=== PATIENT | female | born 1995 | race Two or more races ===

== ENCOUNTER 2019-09-17 10:16 | Day surgery (SDC) | payer OTHER ==
[~2019-09-17 10:16] MED LIST: AMPICILLIN SODIUM 2 GM in NORMAL SALINE 100 ML IV PRN; CARBOXYMETHYLCELLULOSE SOD 0.5% 0.4 ML DROPERETTE ONE; DEXAMETHASONE SOD PHOS INJ 10 MG/1 ML VIAL ONE; HYDROMORPHONE HCL INJ/PF 2 MG/ML AMPULE ONE; MIDAZOLAM 2 MG/2 ML INJ ONE; ONDANSETRON HCL INJ/PF 4 MG/2 ML SDV ONE; PROPOFOL INJ 200 MG/20 ML VIAL IV ONE; SUCCINYLCHOLINE CHLORIDE INJ 200 MG/10 ML VIAL ONE
[2019-09-17] MEDS ORDERED: OXYMETAZOLINE HCL 0.05% NASAL SPRAY 15 ML BOTTLE ONE (10:28)
--- NOTE | 2019-09-17 11:18 | Operative Report ---
[facility] Operative Report: Date: 17 September 2019 History: 24-year-old female with a history of recurrent tonsillitis/chronic tons illitis. Presents today for tonsillectomy. Informed consent was obtained from the patient. Pre-operative diagnosis: 1. Chronic Tonsillitis Post operative diagnosis: Same as above Procedure: Tonsillectomy Surgeon: Emmanuel Anderson MD, FACS, [facility] Anesthesia: General via Endotrachreal intubation Procedure: After receiving informed consent, the patient was brought to the operating room and placed supine on the operating table. After successful induction and intubation by anesthesia the patient was turned 90 degrees and placed in Trendelenburg. A shoulder roll was placed along with a head drape. A McIvor mouth gag was inserted atraumatically into the oral cavity and opened up. The soft palate was palpated and found to be normal. Red rubber catheters were inserted down each nasal cavity and brought out to elevate the soft palate. Attention was then directed to the tonsils. The right tonsil was grasped with tenaculum and retracted medially. Using Bovie electrocautery the right tonsil was dissected free from its tonsillar fossa . Hemostasis was obtained using suction Bovie electrocautery. A similar procedure was performed on the left side. Both tonsils were removed. The tonsils were 3-4+. The oral pharynx and the oral cavity were irrigated with copious amounts of normal saline, without evidence of bleeding. An orogastric tube was inserted into the stomach to aspirate gastric contents. The McIvor mouthgag was then released and reopened, the surgical bed was dry without evidence of bleeding. The McIvor mouth gag along with the red catheters were removed from the patient. The patient was then returned back to anesthesia who successfully extubated the patient. Estimated blood loss: 5 mL Fluids: 300 mL The patient was then transported to the Post Anesthesia Care Unit in stable condition with spontaneous respiration. No complication.
[2019-09-17] MEDS ORDERED: ONDANSETRON HCL INJ/PF 4 MG/2 ML SDV ONE (12:09)
[2019-09-17] MEDS ORDERED: HYDROCOD/ACETAMIN 7.5-325 MG/15 ML ORAL SOLN UDCUP ONE (12:10)
== END 2019-09-17 12:50 | disposition home or self-care (01) ==
LOC: SC 10:16
PROVIDERS: ATTEND Otolaryngology
DX: J03.91 Acute recurrent tonsillitis, unspecified (principal); J35.01 Chronic tonsillitis; J35.8 Other chronic diseases of tonsils and adenoids; J34.2 Deviated nasal septum; Z03.818 Encounter for observation for suspected exposure to other biological agents ruled out
CPT/HCPCS: 87635; 42826; J0290; J2250; J1170; J3490 ×2; J0330; J2405; J7050; J2704; J1100; C9803; 88304

== ENCOUNTER 2019-09-27 03:47 | Day surgery (SDC) | payer OTHER ==
[2019-09-27] MEDS ORDERED: TRANEXAMIC ACID INJ/PF 1,000 MG/10 ML SDV IV ONE (04:24)
[2019-09-27 04:27] LABS: ABSOLUTE BASOPHILS # (AUTO) 0.1 10^3/uL (0.0-0.2); ABSOLUTE EOSINOPHILS # (AUTO) 0.1 10^3/uL (0.0-0.6); ABSOLUTE LYMPHOCYTES (AUTO) 3.9 10^3/uL (0.5-4.7); ABSOLUTE MONOCYTES (AUTO) 0.7 10^3/uL (0.1-1.4); ABSOLUTE NEUT (AUTO) 5.7 10^3/uL (1.7-8.2); BASOPHILS % (AUTO) 0.5 % (0-2); EOSINOPHILS % (AUTO) 0.9 % (0-6); HEMATOCRIT 46.8 % (36.0-47.0); HEMOGLOBIN 16.1 g/dL (12.0-15.5); MEAN CORPUSCULAR HEMOGLOBIN 30.3 pg (27.0-33.4); MEAN CORPUSCULAR HGB CONC 34.4 g/dL (32.0-36.0); MEAN CORPUSCULAR VOLUME 88 fl (80-97); PLATELET COUNT 311 10^3/uL (150-450); RED CELL DISTRIBUTION WIDTH 12.8 % (11.5-14.0); SEGMENTED NEUTROPHILS % (AUTO) 54.6 % (42-78); TOTAL CELLS COUNTED % (AUTO) 100 %; WHITE BLOOD COUNT 10.4 10^3/uL (4.0-10.5)
[2019-09-27 04:32] LABS: INTERNATIONAL RATION (INR) 1.12; PARTIAL THROMBOPLASTIN TIME 29.3 SEC (23.5-35.8); PROTHROMBIN TIME 14.6 SEC (11.4-15.4)
[2019-09-27 04:42] LABS: ALBUMIN 4.9 g/dL (3.5-5.0); ALKALINE PHOSPHATASE 82 U/L (38-126); ANION GAP 16 (5-19); ASPARTATE AMINO TRANSFERASE 39 U/L (14-36); BILIRUBIN,TOTAL 0.7 mg/dL (0.2-1.3); BLOOD UREA NITROGEN 13 mg/dL (7-20); CALCIUM 10.1 mg/dL (8.4-10.2); CARBON DIOXIDE 18 mmol/L (22-30); CHLORIDE 104 mmol/L (98-107); GLUCOSE 128 mg/dL (75-110); TOTAL PROTEIN 8.7 g/dL (6.3-8.2)
[2019-09-27] MEDS ORDERED: DEXAMETHASONE SOD PHOSPHATE INJ 4 MG/1 ML VIAL ONE (05:10)
[2019-09-27] MEDS ORDERED: ONDANSETRON HCL INJ/PF 4 MG/2 ML SDV ONE (05:10)
[2019-09-27] MEDS ORDERED: FENTANYL CITRATE INJ/PF 100 MCG/2 ML AMPUL ONE ×3 (05:10→05:26)
[2019-09-27] MEDS ORDERED: MIDAZOLAM 2 MG/2 ML INJ ONE (05:10)
[2019-09-27] MEDS ORDERED: PROPOFOL INJ 200 MG/20 ML VIAL IV ONE (05:11)
--- NOTE | 2019-09-27 05:25 | ER Document Report ---
ED General - General Chief Complaint: Post Surgical Bleeding Stated Complaint: VOMITING BLOOD - HPI Notes: 24-year-old female history of tonsillectomy September 17, [address] Spencer presents with bleeding from surgical site. Patient has been healing well and is approximately 1 hour before arrival and started having bright red blood pouring out of her mouth that she said was several cups full of blood. Patient spitting up bright red blood and large clots in the ED. Patient denies any syncope, bleeding diatheses, anticoagulation, fever, discharge - Related Data Allergies/Adverse Reactions: PEANUT BUTTER Allergy (Severe, Uncoded 09/09/19 14:42) Hives Past Medical History - General Information source: Patient - Social History Smoking Status: Never Smoker Chew tobacco use (# tins/day): No Drug Abuse: None Family History: Reviewed & Not Pertinent - Past Medical History Cardiac Medical History: Denies: Hx Heart Attack, Hx Hypertension Pulmonary Medical History: Denies: Hx Asthma Neurological Medical History: Denies: Hx Cerebrovascular Accident, Hx Seizures GI Medical History: Denies: Hx Hepatitis, Hx Hiatal Hernia, Hx Ulcer Infectious Medical History: Denies: Hx Hepatitis Past Surgical History: Denies: Hx Hysterectomy, Hx Mastectomy, Hx Open Heart Surgery, Hx Pacemaker Review of Systems - Review of Systems Notes: REVIEW OF SYSTEMS: CONSTITUTIONAL : Denies fever, chills, or sweats. EENT: Denies recent cold/sinus symptoms, denies throat pain CARDIOVASCULAR: Denies chest pain, GINO RESPIRATORY: Denies cough, denies shortness of breath. GASTROINTESTINAL: Denies abdominal pain, nausea/vomiting. GENITOURINARY: Denies difficulty urinating, painful urination. FEMALE GENITOURINARY: Denies abnormal vaginal bleeding, vaginal discharge. MUSCULOSKELETAL: Denies neck pain, back pain. SKIN: Denies rash or skin lesions. HEMATOLOGIC : Denies easy bruising or bleeding. LYMPHATIC: Denies swollen, enlarged glands. NEUROLOGICAL: Denies headache, denies change in gait. PSYCHIATRIC: Denies anxiety or stress or depression. Physical Exam - Vital signs Vitals: Pulse Ox 98 09/27/19 03:54 - Notes Notes: PHYSICAL EXAMINATION: GENERAL: Uncomfortable appearing secondary to actively spitting up large amounts of bright red blood HEAD: Atraumatic, normocephalic. EYES: Pupils equal round and appropriate constriction, sclera anicteric, conjunctiva are normal. ENT: nares patent, moist mucous membranes, after clears mouth of bright red blood able to see bilateral newly forming red eschars in posterior fossae of bilateral oropharynx that are continuing to slowly ooze red blood NECK: Normal range of motion, supple without lymphadenopathy LUNGS: Breath sounds clear to auscultation bilaterally and equal. No wheezes rales or rhonchi. HEART: Borderline tachycardic, no murmurs rubs or gallops ABDOMEN: Soft, nontender, no guarding, no masses, no CVAT EXTREMITIES: Normal range of motion, no pitting or edema. No cyanosis. NEUROLOGICAL: Awake, alert, conversing appropriately, moves all extremities spontaneously. PSYCH: Normal mood, normal affect. SKIN: Warm, Dry, normal turgor, no rashes or lesions noted. Course - Re-evaluation Re-evalutation: 09/27/19 05:24 Patient likely bleeding from tonsillectomy eschars given approximately 10 days postop, bleeding has greatly slowed in ED although patient has few times intermittently has had resumption of bright red blood which she spits up. Patient protecting her airway, will continue to monitor closely. No abdominal symptoms. No signs of infection. Discussed with patient's ENT Dr. Anderson who will take patient to the OR to evaluate bleeding. Ordered TXA given amount of blood on arrival which may have contributed to current reduction in blood loss with only slow bleeding currently. - Vital Signs Vital signs: Temp Pulse Resp BP Pulse Ox 98.0 F 69 18 104/64 97 09/27/19 13:04 09/27/19 13:04 09/27/19 13:04 09/27/19 11:05 09/27/19 13:04 - Laboratory Result Diagrams: 09/27/19 04:12 09/27/19 04:12 Laboratory results interpreted by me: 09/27/19 09/27/19 04:12 04:12 RBC 5.30 H Hgb 16.1 H Carbon Dioxide 18 L Glucose 128 H AST 39 H ALT 55 H Total Protein 8.7 H Discharge - Discharge Clinical Impression: Hemorrhage following tonsillectomy Disposition: SAME DAY SURGERY Admitting Provider: Justin Unit Admitted: OR
[2019-09-27] MEDS ORDERED: LIDOCAINE 2%/EPINEPHRINE INJ 1.7 ML CARTRIDGE ONE (05:26)
[2019-09-27] MEDS ORDERED: BUPIVACAINE HCL 0.5%/EPI 1:200000 INJ 1.8 ML CARTRIDGE ONE (05:26)
[2019-09-27] MEDS ORDERED: OXYMETAZOLINE HCL 0.05% NASAL SPRAY 15 ML BOTTLE ONE (05:27)
[2019-09-27] MEDS ORDERED: ONDANSETRON HCL INJ/PF 4 MG/2 ML SDV IV PRN ×2 (05:57→07:13)
[2019-09-27] MEDS ORDERED: MEPERIDINE HCL/PF INJ 25 MG/1 ML DISP.SYRIN IV PRN (05:57)
[2019-09-27] MEDS ORDERED: PROMETHAZINE HCL INJ 25 MG/1 ML VIAL IV PRN ×2 (05:57)
[2019-09-27] MEDS ORDERED: MORPHINE SULFATE 10 MG/ML INJ IV PRN (05:57)
[2019-09-27] MEDS ORDERED: OXYCODONE-ACETAMINOPHEN 5-325 MG TABLET PO PRN ×2 (05:57)
[2019-09-27] MEDS ORDERED: FENTANYL CITRATE INJ/PF 100 MCG/2 ML AMPUL IV PRN ×3 (05:57)
[2019-09-27] MEDS ORDERED: DIPHENHYDRAMINE HCL 50 MG/ML VIAL IV PRN (05:57)
[2019-09-27] MEDS: FENTANYL CITRATE INJ/PF 100 MCG/2 ML AMPUL ONE ×3 (06:25→06:40)
--- NOTE | 2019-09-27 06:25 | Operative Report ---
[facility] Oper[facility] Report: Date: 27 September 2019 History: 24-year-old female who underwent a tonsillectomy on 17 September 2019 cough ed up blood at 0300 this morning. Patient presented to the emergency room where bleeding was noted coming from the oral cavity/oropharynx. After phone conversation with the emergency room doctor, it was decided that the patient needed to go to the operating room for control of post tonsillectomy hemorrhage. Informed consent was obtained from the patient. Pre-operative diagnosis: Post tonsillectomy bleed, left Post operative diagnosis: Same as above Procedure: Cauterize post tonsillectomy bleed, left tonsil fossa Surgeon: Emmanuel Anderson MD, FACS, [facility] Anesthesia: General via endotracheal intubation Procedure: After receiving informed consent from the patient she was taken to the operating placed supine on the operating room table. After successful induction intubation by anesthesia, the patient was turned 90 degrees and placed in slight Trendelenburg. A shoulder roll and head drape were placed. A MacGyver mouthgag was inserted atraumatically into the oral cavity this was then opened up. A large clot was noted in the left tonsillar fossa. The clot was removed and an arterial bleed was noted mid fossa. This was successfully cauterized using suction Bovie electrocautery. The oral cavity/oropharynx was then irrigated with normal saline. No further bleeding was noted. An orogastric tube was inserted into the stomach and gastric contents were aspirated. The McIvor mouthgag was then let down and reopened, no bleeding was noted. This was then removed from the patient. The patient was given back to anesthesia who successfully extubated the patient. No complications. Estimated blood loss: 10 mL Fluids: 600 mL The patient was then transported to the Post Anesthesia Care Unit in stable condition with spontaneous respiration. No complication.
[2019-09-27] MEDS ORDERED: RINGERS SOLUTION,LACTATED 1,000 ML IV PRN (07:11)
[2019-09-27] MEDS ORDERED: HYDROCOD/ACETAMIN 7.5-325 MG/15 ML ORAL SOLN UDCUP PO PRN ×2 (07:12→07:30)
[2019-09-27] MEDS ORDERED: ACETAMINOPHEN SUSP 160 MG/5 ML ORAL SYRING PO PRN (07:14)
[2019-09-27] MEDS ORDERED: SUCCINYLCHOLINE CHLORIDE INJ 200 MG/10 ML VIAL ONE (10:01)
[2019-09-27 11:43] VITALS: BP 104/64
== END 2019-09-27 13:20 | disposition home or self-care (01) ==
LOC: ER 03:47 → UNDOADMOB 05:28 → EH 05:28 → 2S 07:30 → EH 07:30 → 2S 07:30 → ASU 9 07:30 → UNDODISOB 13:20 → ASU 9 13:20
PROVIDERS: ATTEND Otolaryngology
DX: J95.831 Postprocedural hemorrhage of a respiratory system organ or structure following other procedure (principal); Y83.8 Other surgical procedures as the cause of abnormal reaction of the patient, or of later complication, without mention of misadventure at the time of the procedure
CPT/HCPCS: 99284; 96374; 86900; 86901; 36415; 86850; 83690; 84703; 85025; 85610; 85730; 80053; 99140; 00170; 42960; J2250; J1100; J3010; J3490 ×2; J0330; J2405; J2704; 170

== ENCOUNTER 2019-12-30 20:48 | Emergency (ER) | payer OTHER ==
[2019-12-30] MEDS ORDERED: METOCLOPRAMIDE HCL INJ/PF 10 MG/2 ML SDV IV ONE (21:03)
[2019-12-30] MEDS ORDERED: DIPHENHYDRAMINE HCL 50 MG/ML VIAL IV ONE (21:03)
[2019-12-30] MEDS ORDERED: NORMAL SALINE 1000 ML 1,000 ML IV ONE (21:03)
--- NOTE | 2019-12-30 21:05 | ER Document Report ---
ED Medical Screen (RME) - General Chief Complaint: Vomiting Stated Complaint: VOMITING/ Time Seen by Provider: 12/30/19 20:49 Primary Care Provider: DORON CHRISTIANSON PA-C [Primary Care Provider] - Follow up as needed - [facility] Notes: 12/30/19 21:04 24-year-old female to the emergency department with complaints of intractable nausea and vomiting for the past 2 days. She states she is not able to hold down any fluids or solids. She states she has had decreased urinary output. She states she is only urinated twice today. She called her nurse line and they told her to come to the emergency department for further care. She states that she is about 7 and half weeks . She has not had a confirmed ultrasound just yet. She denies any vaginal bleeding or lower abdominal cramping. She s tates that she feels a little bit dizzy when she stands. She denies any fevers or chills. I performed a brief medical screening exam on the patient determined that the patient needs further evaluation and management by main side provider. I have placed initial orders to help expedite care. - Related Data Allergies/Adverse Reactions: PEANUT BUTTER Allergy (Severe, Uncoded 09/09/19 14:42) Hives Past Medical History - Past Medical History Cardiac Medical History: Denies: Hx Heart Attack, Hx Hypertension Pulmonary Medical History: Denies: Hx Asthma Neurological Medical History: Denies: Hx Cerebrovascular Accident, Hx Seizures GI Medical History: Denies: Hx Hepatitis, Hx Hiatal Hernia, Hx Ulcer Infectious Medical History: Denies: Hx Hepatitis Past Surgical History: Denies: Hx Hysterectomy, Hx Mastectomy, Hx Open Heart Surgery, Hx Pacemaker Physical Exam - Vital signs Vitals: Temp Pulse Resp BP Pulse Ox 98.8 F 89 20 132/81 H 97 12/30/19 20:55 12/30/19 20:55 12/30/19 20:55 12/30/19 20:55 12/30/19 20:55 Course - Vital Signs Vital signs: Temp Pulse Resp BP Pulse Ox 98.8 F 104 H 20 126/82 H 97 12/30/19 20:55 12/30/19 20:56 12/30/19 20:56 12/30/19 20:56 12/30/19 20:56 Doctor's Discharge - Discharge Referrals: MGEHAN,DORON, PA-C [Primary Care Provider] - Follow up as needed
[2019-12-30 21:26] LABS: ABSOLUTE EOSINOPHILS # (AUTO) 0.1 10^3/uL (0.0-0.6); ABSOLUTE MONOCYTES (AUTO) 0.7 10^3/uL (0.1-1.4); ABSOLUTE NEUT (AUTO) 7.4 10^3/uL (1.7-8.2); BASOPHILS % (AUTO) 0.4 % (0-2); EOSINOPHILS % (AUTO) 1.3 % (0-6); HEMATOCRIT 42.6 % (36.0-47.0); HEMOGLOBIN 14.6 g/dL (12.0-15.5); LYMPHOCYTES % (AUTO) 26.5 % (13-45); MEAN CORPUSCULAR HEMOGLOBIN 30.7 pg (27.0-33.4); MEAN CORPUSCULAR HGB CONC 34.3 g/dL (32.0-36.0); MEAN CORPUSCULAR VOLUME 90 fl (80-97); MONOCYTES % (AUTO) 6.1 % (3-13); PLATELET COUNT 220 10^3/uL (150-450); RED BLOOD COUNT 4.75 10^6/uL (3.72-5.28); RED CELL DISTRIBUTION WIDTH 13.2 % (11.5-14.0); SEGMENTED NEUTROPHILS % (AUTO) 65.7 % (42-78); TOTAL CELLS COUNTED % (AUTO) 100 %; WHITE BLOOD COUNT 11.3 10^3/uL (4.0-10.5)
[2019-12-30 21:43] LABS: ALBUMIN 4.7 g/dL (3.5-5.0); ALKALINE PHOSPHATASE 57 U/L (38-126); ANION GAP 14 (5-19); ASPARTATE AMINO TRANSFERASE 26 U/L (14-36); BILIRUBIN,DIRECT 0.1 mg/dL (0.0-0.4); BILIRUBIN,TOTAL 0.5 mg/dL (0.2-1.3); BLOOD UREA NITROGEN 12 mg/dL (7-20); CARBON DIOXIDE 21 mmol/L (22-30); CHLORIDE 104 mmol/L (98-107); GLUCOSE 96 mg/dL (75-110); POTASSIUM 3.8 mmol/L (3.6-5.0); TOTAL PROTEIN 7.9 g/dL (6.3-8.2)
[2019-12-31] MEDS ORDERED: ONDANSETRON HCL INJ/PF 4 MG/2 ML SDV IV ONE (01:39)
--- NOTE | 2019-12-31 01:55 | ER Document Report ---
ED General - General Chief Complaint: Nausea/Vomiting Stated Complaint: VOMITING/ Time Seen by Provider: 12/30/19 20:49 Primary Care Provider: DORON CHRISTIANSON PA-C [Primary Care Provider] - Follow up as needed - HPI Notes: Patient is a 24 y/o female who is 7 weeks and presents with intractable nausea and vomiting for the past two days. Patient found out she was three days ago via home test. She has not been able to keep water or food down. She also reports oliguria and only urinated twice yesterday. She called the Nurse Line regarding her symptoms and she was advised to come in for evaluation of dehydration. She now endorses abdominal pain since arriving to the ED. She denies hematemesis, vaginal bleeding, diarrhea, fever, dysuria. P:1. - Related Data Allergies/Adverse Reactions: PEANUT BUTTER Allergy (Severe, Uncoded 12/30/19 21:57) Hives Home Medications: PRE-NATALS Past Medical History - General Information source: Patient - Social History Smoking Status: Never Smoker Frequency of alcohol use: None Drug Abuse: None Family History: Reviewed & Not Pertinent - Past Medical History Cardiac Medical History: Denies: Hx Heart Attack, Hx Hypertension Pulmonary Medical History: Denies: Hx Asthma Neurological Medical History: Denies: Hx Cerebrovascular Accident, Hx Seizures GI Medical History: Denies: Hx Hepatitis, Hx Hiatal Hernia, Hx Ulcer Infectious Medical History: Denies: Hx Hepatitis Past Surgical History: Denies: Hx Hysterectomy, Hx Mastectomy, Hx Open Heart Surgery, Hx Pacemaker Review of Systems - Review of Systems Constitutional: No symptoms reported EENT: No symptoms reported Cardiovascular: No symptoms reported Respiratory: No symptoms reported Gastrointestinal: See HPI Genitourinary: See HPI Female Genitourinary: No symptoms reported Musculoskeletal: No symptoms reported Skin: No symptoms reported Hematologic/Lymphatic: No symptoms reported Neurological/Psychological: No symptoms reported Physical Exam - Vital signs Vitals: Pulse Resp BP Pulse Ox 92 20 114/77 100 12/30/19 20:48 12/30/19 20:48 12/30/19 20:48 12/30/19 20:48 - Notes Notes: PHYSICAL EXAMINATION: VITALS: Vitals reviewed and within normal limits. GENERAL: Well-appearing, well-nourished and in no acute distress. HEAD: Atraumatic, normocephalic. EYES: Pupils equal, round, and reactive to light, extraocular movements intact, sclera anicteric, conjunctiva are normal. ENT: Nares patent. Moist mucous membranes. Oropharynx clear without exudates. NECK: Normal range of motion, supple without lymphadenopathy. LUNGS: Breath sounds clear to auscultation bilaterally and equal. No wheezes, rales, or rhonchi. HEART: Regular, rate, and rhythm without murmurs. ABDOMEN: Soft, nontender, normoactive bowel sounds. No guarding, no rebound. No masses appreciated. EXTREMITIES: Normal range of motion, no pitting or edema. No cyanosis. NEUROLOGICAL: No focal neurological deficits. Moves all extremities spontaneously and on command. PSYCH: Normal mood, normal affect. SKIN: Warm, Dry, normal turgor, no rashes or lesions noted. Course - Re-evaluation Re-evalutation: Patient is a 24 y/o female with no medical history and is ~7 weeks confirmed via home who presents for intractable nausea and vomiting for the past two days. She endorses oliguria. Tachycardia with a rate of 104, vital signs are otherwise within normal limits. On exam, abdomen is soft and nontender with active bowel sounds in all four quadrants. CBC shows a mildly elevated WBC of 11.3. CMP is unremarkable and within normal limits. Mg is normal at 2.2. I consulted my supervising physician, Dr. Almazan and added on a HCG quant, transvaginal US, UA with urine culture and ABO/Rh workup. 1L of normal saline and 4mg of IV zofran ordered. 12/31/19 02:34 UA shows elevated protein of 30, elevated ketones of 80 and specific gravity of 1.032 which are consistent with dehydration. UA also shows large leukocyte esterase and WBC of 63 consistent with asymptomatic bacteriuria. Urine cultures ordered. 12/31/19 03:55 Patient is B+, rhogam not indicated. HCG quant of 26,262. 12/31/19 04:49 OB US shows single live intrauterine measuring 6 weeks and 1 day. 12/31/19 05:51 Patient tolerated PO challenge. Based on abdominal exam, vitals and history I do not suspect an acute appendicitis, cholestasis of , acute cholecystitis, pancreatitis, or bowel obstruction. Patient will be started on a combination of doxylamine and vitamin B6. A prescription for keflex also given for her asymptomatic bacteriuria. At this time will discharge with return precautions and follow-up recommendations. Verbal discharge instructions given a the bedside and opportunity for questions given. Medication warnings reviewed. Patient is in agreement with this plan and has verbalized understanding of return precautions and the need for primary care follow-up in the next 24-72 hours. - Vital Signs Vital signs: Temp Pulse Resp BP Pulse Ox 98.1 F 76 16 105/60 100 12/31/19 05:06 12/31/19 05:06 12/31/19 00:51 12/31/19 05:06 12/31/19 05:06 - Laboratory Result Diagrams: 12/30/19 21:10 12/30/19 21:10 Laboratory results interpreted by me: 12/30/19 12/30/19 12/30/19 21:10 21:10 21:10 WBC 11.3 H Carbon Dioxide 21 L ALT 36 H Beta HCG, Quant 37951.00 H Urine Protein Urine Ketones Urine Urobilinogen Ur Leukocyte Esterase 12/31/19 00:14 WBC Carbon Dioxide ALT Beta HCG, Quant Urine Protein 30 H Urine Ketones 80 H Urine Urobilinogen 2.0 H Ur Leukocyte Esterase LARGE H - Diagnostic Test Radiology reviewed: Reports reviewed Radiology results interpreted by me: Obstetrics Ultrasound 12/31/19 01:40 IMPRESSION: 1. Single live intrauterine . Discharge - Discharge Clinical Impression: Vomiting affecting , Dehydration, Asymptomatic bacteriuria during Condition: Stable Disposition: HOME, SELF-CARE Additional Instructions: You have been seen for vomiting during . You should continue to drink plenty of water and consider taking a solution such as Pedialyte if your having difficulty eating food. Please return if you become unable to drink any fluids for more than 12 hours, urinate less than twice a day, pass out, or have any other symptoms that are concerning to you. For nausea and vomiting during I recommend: Start with 10-12.5 mg of pyridoxine (vitamin B6) three times a day for 2 days. If not fully effective, Increase to 12.5 mg of pyridoxine four times a day for 2 days. If not fully effective, Increase to 25 mg of pyridoxine three times a day for 2 days. If not fully effective, Continue 25 mg pyridoxine 3 times a day, and add 12.5 mg of doxylamine before bedtime each day for 2 days. If not fully effective, Continue 25 mg pyridoxine 3 times a day, and take 12.5 mg of doxylamine twice a day. If not fully effective, Continue 25 mg pyridoxine 3 times a day, and take 12.5 mg of doxylamine three times a day. If not fully effective, Continue 25 mg pyridoxine 3 times a day, and 12.5 mg of doxylamine 3 times a day, while adding Emetrol, one to two tablespoons (15-30 cc) taken once or twice a day as needed. (Emetrol is an [id number] mixture of sugar syrups and phosphoric acid [phosphorylated carbohydrate solution]) that acts by soothing the actual wall of the gastrointestinal tract). If not fully effective, Consult with your doctor. Prescriptions: Doxylamine Succinate [Unisom] 25 mg PO QHS 14 Days #14 tablet Pyridoxine HCl [Vitamin B-6 Tablet 50 mg] 50 mg PO QHS 14 Days #14 tablet Cephalexin [Cephalexin 500 MG Tablet] 500 mg PO QID 5 Days #20 tablet Referrals: DORON CHRISTIANSON PA-C [Primary Care Provider] - Follow up as needed
[2019-12-31 02:16] LABS: APPEARANCE,URINE CLOUDY; BILIRUBIN,URINE NEGATIVE (NEGATIVE); COLOR,URINE AMBER; GLUCOSE, URINE NEGATIVE (NEGATIVE); KETONES,URINE 80 mg/dL (NEGATIVE); LEUKOCYTE ESTERASE,URINE LARGE (NEGATIVE); NITRITE,URINE NEGATIVE (NEGATIVE); PROTEIN,URINE 30 mg/dL (NEGATIVE); URINE SPECIFIC GRAVITY 1.032
--- NOTE | 2019-12-31 04:28 | RADIOLOGY REPORT (SQ) ---
COMPLETED DATE/TME: 12/31/2019 01:40 EXAM: Pelvic ultrasound. INDICATION: Vomiting. TECHNIQUE: Grayscale and Doppler sonogram of the pelvis. Transvaginal technique was used for better evaluation of the pelvic viscera. Note: MSD=mean sac diameter. CRL=crown-rump length. LMP=last menstrual period. MA=mean gestational age. PHIL=estimated date of delivery. COMPARISON: None. FINDINGS: Uterus: Anteverted. Measures 10.0 x 6.0 x 7.0 cm. Endometrium: Intrauterine gestational sac. Gestational sac: Shape is oval. Fetus: CRL measures 0.4 cm. Heart rate: 111 bpm. Other: Subchorionic hematoma: None. Amniotic fluid: Subjectively within normal limits. Maternal ovaries: Right: Measures 2.9 x 2.8 x 2.7 cm. Normal doppler flow. Left: Measures 4.1 x 1.4 x 2.1 cm. Normal doppler flow. Clinical: LMP: 11/07/2019. MA: Seven weeks five days. PHIL: 08/13/2020. Ultrasound: MA: Six weeks one day. PHIL: 08/24/2020. IMPRESSION: 1. Single live intrauterine .
[2019-12-31 06:19] VITALS: BP 101/62
== END 2019-12-31 06:19 | disposition home or self-care (01) ==
LOC: ER 20:48
DX: O21.9 Vomiting of pregnancy, unspecified (principal); E86.0 Dehydration; R82.71 Bacteriuria; Z3A.01 Less than 8 weeks gestation of pregnancy
CPT/HCPCS: 99285; 96361; 96374; 86900; 86901; 36415; 87086; 84702; 83735; 85025; 80053; 81001; 76817; J2405; J7030